=== PATIENT | male | born 1980 ===

== ENCOUNTER 2017-06-13 14:12 | Emergency (ER) | payer OTHER ==
--- NOTE | ~2017-06-13 | EKG ---
PATIENT: TATUM BALDWIN UNIT #: [id number] Ventricular Rate: 41 BPM Atrial Rate: 41 BPM P-R Interval: 160 ms QRS Duration: 92 ms Q-T Interval: 506 ms QTC Calculation(Bezet): 417 ms P [place]: 31 degrees Calculated R [place]: -3 degrees Calculated T [place]: -8 degrees Diagnosis Line: Marked sinus bradycardia Diagnosis Line: No previous ECGs available Diagnosis Line: Borderline ECG Diagnosis Line: Confirmed by KRISTA FRIED MD ([id number]) on 06/14/2017 Diagnosis Line: 5:05:23 PM INTERPRETING MD: FARIHA KINNEY
== END 2017-06-13 15:10 | disposition left against medical advice (07) ==
LOC: CED 14:12
DX: Z53.21 Procedure and treatment not carried out due to patient leaving prior to being seen by health care provider (principal)
CPT/HCPCS: 93005